=== PATIENT | female | born 1960 | race Caucasian/White ===

== ENCOUNTER 2023-05-06 08:51 | Emergency (ER) | payer MEDICARE, OTHER, SELFPAY ==
[2023-05-06 08:54] VITALS: BP 148/75
[2023-05-06 08:59] VITALS: BMI 24.7
--- NOTE | 2023-05-06 09:54 | ED.GENMED ---
History of Present Illness
General
Chief Complaint: Swallowing Problem
Source: patient and ambulance crew
Exam Limitations: none
Time Seen by Provider: 05/06/23 09:01
Nursing documentation reviewed up to this point in time: agreed with
Travel History
Have you had any contact with someone who has COVID-19?: No
Do you have any symptoms of coronavirus? Fever > 100 degrees, chills, cough, shortness of breath, sore throat, loss of taste or smell, muscle aches, or headache?: No
History of Present Illness
History of Present Illness:
63-year-old female with history of schizoaffective disorder, depression, suicidal ideation patient states she feels there is something stuck in her throat. She denies chest pain or trouble breathing.
Spoke with Minal the warehouse receiving supervisor states during med Pass, she did not show. She is always the first one there, they went to find her, she never came out of her bedroom to get her meds, when staff knocked on the door, she did not answer, did
not respond, started banging on the door, still did not respond when she usually does. They retrieved the master vega and went into her room. She was laying still, they called out her name, she opened her eyes but she did not move, she was
breathing, they shook her and called to her and she did not respond. Her arm was ' weight.' Per Minal, this was not like her to just not respond at all. When they tried to move her it was weight, they could not even sit her up. 7
minutes later when vice president of development came she was responding as usual, when EMS asked her to you hear me, she stated she needs toilet paper. At that point she did get out of bed and stool is usual she did not report that she felt anything stuck in her throat at
that time.
and was at her baseline, the first thing she said was 'I need some toilet paper.'.
Minal states she was 'out of character,' the day before, screaming and yelling, going on and on, unusual for her. Has had UTI in the past
Pt states she does not want to go back to [facility] as 'I can't use a handicapped bathroom.' Thinking the lack of toilet paper may have set her off, I asked Minal to check the BR and she did and said there is toilet paper in there.
Past History
Past History
ED Past Medical History: COPD, HTN, Psychiatric (Schizoaffective disorder) and Other (Nasal polyps)
ED Past Surgical History: Cholecystectomy and Orthopedic
Social History
Tobacco: Former smoker (Quit cigarettes in 2015; reports secondhand smoke exposure)
Alcohol: None
Drug: None
Personal:
Living: assisted living (Resides in a psychiatric senior living)
Employment: Disabled
Family History
Family History: Other (Noncontributory)
Review of Systems
Review of Systems
Allergies reviewed?: Yes
All Other Systems: ROS reviewed and negative except as documented in HPI and ROS
Constitutional: Denies fever
EENT: Denies sore throat
Respiratory: Denies trouble breathing
Cardiac: Denies chest pain
ABD/GI: Denies abdominal pain, nausea, vomiting or diarrhea
: Denies dysuria or difficulty voiding
Musculoskeletal: Denies edema
Skin: Reports no symptoms
Neurological: Reports no symptoms
Phy Exam
Physical Exam
Physical Exam:
GENERAL: No acute distress. A&Ox3.
CONSTITUTIONAL: Afebrile.
EYES: PERRL, conjunctivae normal
Neck: Supple
ENMT: moist mucus membranes, Pharynx nl
RESPIRATORY: Regular respirations, nonlabored, lungs clear.
CARDIOVASCULAR: Regular rate and rhythm, no murmurs, no rubs.
GI: Soft, nontender, normal BS
MUSCULOSKELETAL: Moves with ease. Well perfused.
SKIN: Warm, dry, pink
PSYCH: Mildly agitated at times,. Well kept, interactive.
NEUROLOGIC: Awake, alert and oriented. No focal neurological deficits
Course
Orders/Labs/Results
Orders:
Orders
05/06/23 09:03
CR Soft Tissue Neck Urgent
Comment:
Reason For Exam: feels 'like watermelon seeds' stuck in throat
05/06/23 10:34
Complete Blood Count/With Diff Urgent
Comprehensive Metabolic Panel Urgent
Urinalysis Reflex To Culture Urgent
Date Specimen was Collected: 05/06/23
Time Specimen was Collected: 10:28
Abnormal Lab Results
05/06/23
10:34
Absolute Monos (auto) 0.7 H 10^3/uL
(0.1-0.6)
Sodium 132 L mmol/L
(135-145)
Chloride 96 L mmol/L
(98-107)
Carbon Dioxide 33 H mmol/L
(22-30)
BUN 4 L mg/dl
(7-17)
Creatinine 0.4 L mg/dL
(0.6-1.0)
Glucose 115 H mg/dl
(70-99)
05/06/23 10:34
05/06/23 10:34
Vital Signs
Initial and Last Documented VS:
Initial Vital Signs
Temp Pulse Resp BP Pulse Ox
98.2 F 73 16 148/75 94
05/06/23 08:54 05/06/23 08:54 05/06/23 08:54 05/06/23 08:54 05/06/23 08:54
Last Documented Vital Signs
Temp Pulse Resp BP Pulse Ox
98.2 F 74 16 119/77 94
05/06/23 08:54 05/06/23 16:41 05/06/23 08:54 05/06/23 16:41 05/06/23 08:54
MDM/Problems Addressed
Differential Diagnosis Includes:
Psychotic episode, UTI
MDM/Problems Addressed:
63-year-old female with history of schizoaffective disorder, depression, suicidal ideation patient states she feels there is something stuck in her throat. She denies chest pain or trouble breathing.
Spoke with Minal the warehouse receiving supervisor states during med Pass, she did not show. She is always the first one there, they went to find her, she never came out of her bedroom to get her meds, when staff knocked on the door, she did not answer, did
not respond, started banging on the door, still did not respond when she usually does. They retrieved the master vega and went into her room. She was laying still, they called out her name, she opened her eyes but she did not move, she was
breathing, they shook her and called to her and she did not respond. Her arm was ' weight.' Per Minal, this was not like her to just not respond at all. When they tried to move her it was weight, they could not even sit her up. 7
minutes later when vice president of development came she was responding as usual, when EMS asked her to you hear me, she stated she needs toilet paper. At that point she did get out of bed and stool is usual she did not report that she felt anything stuck in her throat at
that time.
and was at her baseline, the first thing she said was 'I need some toilet paper.'.
Minal states she was 'out of character,' the day before, screaming and yelling, going on and on, unusual for her. Has had UTI in the past
Pt states she does not want to go back to [facility] as 'I can't use a handicapped bathroom.' Thinking the lack of toilet paper may have set her off, I asked Minal to check the BR and she did and said there is toilet paper in there.
05/06/2023 1145 PM
CBC normal
CMP normal
UA negative
Soft tissue lateral neck shows no acute abnormality
Patient has been out of bed multiple times ambulating to the bathroom or around the room, no focal neurological deficits.
This morning's episode was most likely a psychotic episode as she snapped right out of it when EMS arrived, has been acting baseline since arrival.
*Critical Care Note
Total Time (30-74mins, 75-104mins- exclusive of procedures): Not Applicable
ED Attending Note
-
Portions of this chart may have been created with voice recognition software.� Occasional wrong word or��sound alike� substitutions may have occurred due to the inherent limitations of voice recognition software.
Discharge Plan
Departure
Patient Disposition: Home (Routine Discharge)
Date of Disposition: 05/06/23
Time of Disposition: 11:53
Patient with high blood pressure during this ER visit?: No
Condition: Good
Discharge Problem:
Schizoaffective disorder
Prescriptions:
No Action
fluoxetine [Prozac] 40 mg Capsule
40 mg PO DAILY
olanzapine 10 mg Tablet
10 mg PO BID
haloperidol 10 mg Tablet
10 mg PO BID
docusate sodium [Colace] 100 mg Capsule
100 mg PO DAILY
clotrimazole 1 % Cream
1 applic TOPICAL TID
Rx Instructions:
Apply to feet
Ensure Original Liquid
1 ea PO BID
acetaminophen 325 mg Tablet
650 mg PO Q4HWA Qty: 0 0RF
lorazepam 0.5 mg Tablet
0.5 mg PO DAILY
cefdinir 300 mg capsule
300 mg PO BID 10 Days Qty: 20 0RF
Referrals:
Walter Wiley, [Family Provider] - As needed
Activity Restrictions/Additional Instructions:
There is nothing worrisome in your workup here today.
Your lab work is normal, your urine test is normal, your neck x-ray shows nothing worrisome.
You have been in and out of bed and ambulating normally since arrival
Interventions
Interventions:
*Risk Screen - Suicide Last Done: 05/06/23 08:59
*General Assessment Last Done: 05/06/23 08:59
*Neglect/Abuse Screening Last Done: 05/06/23 08:59
*Nursing Disposition Last Done: 05/06/23 16:41
ED-EENT Assessment Last Done: 05/06/23 08:59
DB-Xslmpe-Rrfatygsbx Assessment Last Done: 05/06/23 08:59
ED- Pulmonary Assessment Last Done: 05/06/23 08:59
ED- Neurological Assessment Last Done: 05/06/23 08:59
ED Swallowing Screen Last Done: 05/06/23 10:27
Discharge Date and Time
Discharge Date/Time: 05/06/23 16:43
[2023-05-06 10:47] LABS: Urine Albumin Negative (Neg - Trace); Urine Bilirubin Negative (Negative); Urine Character Clear (Clear); Urine Color Yellow; Urine Glucose Negative (Negative); Urine Ketone Negative (Negative); Urine Leukocyte Negative (Negative); Urine Nitrite Negative (Negative); Urine Occult Blood Negative (Negative); Urine Urobilinogen Negative (Neg - 1+)
[2023-05-06 10:55] LABS: % Basophils 0.5 % (0-2); % Eosinophils 3.4 % (0-6); % Immature Granulocytes 0.1 % (0-0.5); % Lymphocytes 20.6 % (20.5-51.1); % Monocytes 9.2 % (1.7-9.3); % Neutrophils 66.2 % (42.2-75.2); Absolute Eosinophils 0.3 10^3/uL (0-0.7); Absolute Lymphocytes 1.5 10^3/uL (1.2-3.4); Absolute Monocytes 0.7 10^3/uL (0.1-0.6); Absolute Neutrophils 4.9 10^3/uL (1.4-6.5); Hematocrit 40.4 % (37.0-47.0); Hemoglobin 13.7 g/dL (12.0-16.0); Mean Corp Hgb Conc. 33.9 g/dL (33.0-37.0); Mean Corpuscular Volume 91.4 fL (81.0-99.0); Mean Platelet Volume 8.9 fL (7.4-10.4); Nucleated Red Blood Cells % 0 %; Platelet Count 307 10^3/uL (130-400); Red Blood Cell Count 4.42 10^6/uL (4.20-5.40); Red Cell Dist. Width 12.6 % (11.5-14.5); White Blood Cell Count 7.4 10^3/uL (4.8-10.8)
[2023-05-06 11:08] LABS: ALT (SGPT) 15 U/L (0-35); AST (SGOT) 28 U/L (14-36); Albumin 3.9 g/dl (3.5-5.0); Alkaline Phosphatase 80 U/L (38-126); Blood Urea Nitrogen 4 mg/dl (7-17); Calcium 8.9 mg/dl (8.4-10.2); Carbon Dioxide 33 mmol/L (22-30); Chloride 96 mmol/L (98-107); Estimated Creatinine Clearance 97 ml/min; Glucose 115 mg/dl (70-99); Potassium 4.7 mmol/L (3.5-5.1); Sodium 132 mmol/L (135-145); Total Bilirubin 0.8 mg/dl (0.2-1.3); Total Protein 6.6 g/dl (6.3-8.2); eGFR > 60.00
[2023-05-06 16:40] VITALS: BP 119/77
[2023-05-06 16:41] VITALS: BP 119/77
== END 2023-05-06 16:43 | disposition home or self-care (01) ==
LOC: EMR 08:51
PROVIDERS: Registered Nurse; EMERGENCY PHYSICIAN Emergency Medicine; FAMILY PHYSICIAN Family Medicine
DX: F25.9 Schizoaffective disorder, unspecified (principal); F32.A Depression, unspecified
CPT/HCPCS: 99284; 70360; 80053; 81003; 85025

== ENCOUNTER 2023-10-27 13:24 | Emergency (ER) | payer MEDICARE, OTHER, SELFPAY ==
--- NOTE | 2023-10-27 13:27 | ED.GENMED ---
History of Present Illness
General
Chief Complaint: Musculo-Skeletal Complaint
Time Seen by Provider: 10/27/23 13:26
History of Present Illness
History of Present Illness:
HPI: Comes in from [facility] in [facility] Per staff (according to EMS), had been c/o 'being able to see the bone of the right foot'. She ultimately went to a neighbor's house and called for 911. She said they are
treating her like she was in a concentration camp.
EXAM:
GENERAL: Well appearing in no distress
HEENT: Moist oral mucosa, chronic appearing deformity noted to the nose
CARDIOVASCULAR: No murmurs, normal heart rate, regular rhythm, No chest wall tenderness
PULMONARY: No good respiratory distress, breath sounds are clear and equal
ABDOMEN: Soft with no peritoneal signs, no tenderness
NEUROLOGIC: Good strength all extremities, no coordination deficits
PSYCHIATRIC: She has pressured speech and tangential thoughts, she lacks logic, she thinks it is May
EXTREMITIES: Nontender, no edema, moves all extremities equally
SKIN: Some onychomycosis noted to the nail of the right first toe, no visualized bone
TIME OF INITIAL ENCOUNTER: 1:30 PM
NUMBER AND COMPLEXITY OF PROBLEMS ADDRESSED AT THE ENCOUNTER
� Chronic conditions affecting care: Schizophrenia, developmental delay
� Acute Exacerbation and/or Progression of Chronic Illness: This is an acute on chronic problem
� Differential Diagnosis includes: Exacerbation of schizophrenia
AMOUNT AND/OR COMPLEXITY OF DATA TO BE REVIEWED AND ANALYZED
� I performed an independent evaluation of and my interpretation is:
EKG:
CT:
X-rays:
Laboratory Studies: Normal CBC, sodium 132, bicarb slightly high but otherwise begin chemistry abnormality
Other:
� Review of other/old records: I reviewed records. The patient was seen here in April of this year with psychiatric concern but ultimately was discharged back to her facility.
� Clinical information was obtained by an independent historian: I reviewed the notes from her facility which indicates that she did receive her regularly scheduled Haldol this morning and Zyprexa last evening
� Prescriptions/Medications Considered but not given: Considered antipsychotic the patient is already on Zyprexa and Haldol
� Further testing considered but not performed:
RISK OF COMPLICATIONS AND/OR MORBIDITY OR MORTALITY OF PATIENT MANAGEMENT
� Social determinants of health affecting care: Lives at [facility]
� Discussion with other providers: Discussed case with crisis and asked for consult - pt refused to speak w/ her as of 1414. I went in the room with crisis. She refused to speak to crisis but clearly displayed evidence of
psychosis. However she is already at a [facility] [place] [facility]. Crisis reached out to the [facility] [place] [facility] and they will come to pick her up shortly. She does not appear to be a threat to herself or others
� Escalation of care including admission/observation vs risk of discharge considered: The patient has pressured speech, tangential thoughts, and lacks logic. However she is already at a facility called [facility]. I have
asked for crisis to evaluate as well. I feel that she is medically cleared. And she has already had a [facility] [place] [facility].
Past History
Past History
ED Past Medical History: COPD, HTN, Psychiatric (Schizoaffective disorder) and Other (Nasal polyps)
ED Past Surgical History: Cholecystectomy and Orthopedic
Social History
Tobacco: Former smoker (Quit cigarettes in 2015; reports secondhand smoke exposure)
Alcohol: None
Drug: None
Personal:
Living: assisted living (Resides in a [facility] [place] [facility])
Employment: Disabled
Family History
Family History: Other (Noncontributory)
Phy Exam
Physical Exam
Physical Exam:
See HPI
Course
Orders/Labs/Results
Orders:
Orders
10/27/23 13:40
Crisis Consult Urgent
Reason for Consult: mental health eval
10/27/23 13:47
Alcohol Urgent
Complete Blood Count/With Diff Urgent
Comprehensive Metabolic Panel Urgent
Drug Screen, Urine [Urine Drug Abuse Screen] Urgent
Date Specimen was Collected: 10/27/23
Time Specimen was Collected: 13:41
Fentanyl, Urine Urgent
Abnormal Lab Results
10/27/23
13:47
RBC 3.97 L 10^6/uL
(4.20-5.40)
Hct 36.1 L %
(37.0-47.0)
MCH 31.2 H pg
(27.0-31.0)
Absolute Monos (auto) 0.7 H 10^3/uL
(0.1-0.6)
Lymphocytes % 18.9 L %
(20.5-51.1)
Monocytes % 9.8 H %
(1.7-9.3)
Sodium 132 L mmol/L
(135-145)
Chloride 96 L mmol/L
(98-107)
Carbon Dioxide 34 H mmol/L
(22-30)
Creatinine 0.4 L mg/dL
(0.6-1.0)
Glucose 109 H mg/dl
(70-99)
Total Protein 6.2 L g/dl
(6.3-8.2)
U Benzodiazepines Scrn Positive H
(Negative)
10/27/23 13:47
10/27/23 13:47
Vital Signs
Initial and Last Documented VS:
Initial Vital Signs
BP
125/66
10/27/23 13:36
Last Documented Vital Signs
Temp Pulse Resp BP Pulse Ox
98.8 F 65 13 125/66 95
10/27/23 13:40 10/27/23 14:30 10/27/23 14:30 10/27/23 13:40 10/27/23 14:30
*Critical Care Note
Total Time (30-74mins, 75-104mins- exclusive of procedures): Not Applicable
ED Attending Note
-
Portions of this chart may have been created with voice recognition software.� Occasional wrong word or��sound alike� substitutions may have occurred due to the inherent limitations of voice recognition software.
Discharge Plan
Departure
Patient Disposition: Home (Routine Discharge)
Date of Disposition: 10/27/23
Time of Disposition: 14:39
Patient with high blood pressure during this ER visit?: Yes
Discharge Problem:
Psychosis, Schizoaffective disorder
Prescriptions:
No Action
fluoxetine [Prozac] 40 mg Capsule
40 mg PO DAILY
olanzapine 10 mg Tablet
10 mg PO BID
haloperidol 10 mg Tablet
10 mg PO BID
docusate sodium [Colace] 100 mg Capsule
100 mg PO DAILY
clotrimazole 1 % Cream
1 applic TOPICAL TID
Rx Instructions:
Apply to feet
Ensure Original Liquid
1 ea PO BID
acetaminophen 325 mg Tablet
650 mg PO Q4HWA Qty: 0 0RF
lorazepam 0.5 mg Tablet
0.5 mg PO DAILY
cefdinir 300 mg capsule
300 mg PO BID 10 Days Qty: 20 0RF
Referrals:
Walter Wiley, DO [Family Provider] -
Activity Restrictions/Additional Instructions:
Basic blood work is unremarkable including normal white count, normal hemoglobin, alcohol level is undetected. Sodium level is just slightly low but not what I would consider is anything significant. Return here if worse.
Interventions
Interventions:
*Risk Screen - Suicide Last Done: 10/27/23 14:11
*General Assessment Last Done: 10/27/23 14:11
*Neglect/Abuse Screening Last Done: 10/27/23 14:11
ED- Fall Risk Assessment Last Done: 10/27/23 14:37
*ED COVID-19 Vaccine History Last Done: 10/27/23 14:11
ED-Musculoskeletal Assessment Last Done: 10/27/23 14:37
Discharge Date and Time
Print Language: MACEDONIAN
[2023-10-27 13:29] VITALS: BMI 29.3
[2023-10-27 13:36] VITALS: BP 125/66
[2023-10-27 13:40] VITALS: BP 125/66
[2023-10-27 14:00] LABS: % Basophils 0.5 % (0-2); % Eosinophils 3.7 % (0-6); % Immature Granulocytes 0.1 % (0-0.5); % Lymphocytes 18.9 % (20.5-51.1); % Monocytes 9.8 % (1.7-9.3); Absolute Eosinophils 0.3 10^3/uL (0-0.7); Absolute Lymphocytes 1.4 10^3/uL (1.2-3.4); Absolute Monocytes 0.7 10^3/uL (0.1-0.6); Hematocrit 36.1 % (37.0-47.0); Hemoglobin 12.4 g/dL (12.0-16.0); Mean Corp Hgb Conc. 34.3 g/dL (33.0-37.0); Mean Corpuscular Hgb 31.2 pg (27.0-31.0); Mean Corpuscular Volume 90.9 fL (81.0-99.0); Mean Platelet Volume 8.7 fL (7.4-10.4); Nucleated Red Blood Cells % 0 %; Platelet Count 287 10^3/uL (130-400); Red Blood Cell Count 3.97 10^6/uL (4.20-5.40); Red Cell Dist. Width 12.1 % (11.5-14.5); White Blood Cell Count 7.5 10^3/uL (4.8-10.8)
[2023-10-27 14:18] LABS: ALT (SGPT) 13 U/L (0-35); AST (SGOT) 23 U/L (14-36); Albumin 3.7 g/dl (3.5-5.0); Alkaline Phosphatase 66 U/L (38-126); Blood Urea Nitrogen 7 mg/dl (7-17); Carbon Dioxide 34 mmol/L (22-30); Chloride 96 mmol/L (98-107); Estimated Creatinine Clearance 89 ml/min; Glucose 109 mg/dl (70-99); Potassium 4.2 mmol/L (3.5-5.1); Sodium 132 mmol/L (135-145); Total Bilirubin 0.3 mg/dl (0.2-1.3); Total Protein 6.2 g/dl (6.3-8.2); eGFR > 60.00
[2023-10-27 14:19] LABS: Alcohol None Detected
[2023-10-27 14:56] LABS: Amphetamines Negative (Negative); Barbiturates Negative (Negative); Benzodiazepines Positive (Negative); Buprenorphine Negative (Negative); Cocaine Negative (Negative); Marijuana Negative (Negative); Methadone Negative (Negative); Methamphetamines Negative (Negative); Opiates Negative (Negative); Phencyclidine Negative (Negative); Tricyclic Antidepressants Negative (Negative)
[2023-10-27 15:18] LABS: Fentanyl, Urine Negative (Negative)
[2023-10-27 16:40] VITALS: BP 133/76
[2023-10-27 16:58] VITALS: BP 133/76
== END 2023-10-27 17:00 | disposition home or self-care (01) ==
LOC: EMR 13:24
PROVIDERS: EMERGENCY PHYSICIAN Emergency Medicine; FAMILY PHYSICIAN Family Medicine
DX: F29 Unspecified psychosis not due to a substance or known physiological condition (principal); F25.9 Schizoaffective disorder, unspecified; J44.9 Chronic obstructive pulmonary disease, unspecified; I10 Essential (primary) hypertension; Z77.22 Contact with and (suspected) exposure to environmental tobacco smoke (acute) (chronic); Z87.891 Personal history of nicotine dependence; Z90.49 Acquired absence of other specified parts of digestive tract
CPT/HCPCS: 99283; 80053; 80306; 80307; 82077; 85025

== ENCOUNTER 2024-02-11 02:48 | Observation (INO) | payer MEDICARE, OTHER, SELFPAY ==
[2024-02-10 11:13] VITALS: BP 116/79; BMI 24.0
[2024-02-10 16:35] LABS: % Basophils 0.8 % (0-2); % Eosinophils 5.3 % (0-6); % Immature Granulocytes 0.2 % (0-0.5); % Lymphocytes 25.1 % (20.5-51.1); % Monocytes 11.3 % (1.7-9.3); % Neutrophils 57.3 % (42.2-75.2); Absolute Basophils 0.1 10^3/uL (0-0.2); Absolute Eosinophils 0.4 10^3/uL (0-0.7); Absolute Lymphocytes 1.7 10^3/uL (1.2-3.4); Absolute Monocytes 0.8 10^3/uL (0.1-0.6); Absolute Neutrophils 3.8 10^3/uL (1.4-6.5); Hematocrit 38.2 % (37.0-47.0); Hemoglobin 12.4 g/dL (12.0-16.0); Mean Corp Hgb Conc. 32.5 g/dL (33.0-37.0); Mean Corpuscular Hgb 31.2 pg (27.0-31.0); Mean Platelet Volume 8.4 fL (7.4-10.4); Nucleated Red Blood Cells % 0 %; Platelet Count 272 10^3/uL (130-400); Red Blood Cell Count 3.98 10^6/uL (4.20-5.40); Red Cell Dist. Width 12.4 % (11.5-14.5); White Blood Cell Count 6.7 10^3/uL (4.8-10.8)
[2024-02-10 16:59] LABS: ALT (SGPT) 15 U/L (0-35); AST (SGOT) 22 U/L (14-36); Albumin 3.5 g/dl (3.5-5.0); Alkaline Phosphatase 58 U/L (38-126); Blood Urea Nitrogen 7 mg/dl (7-17); Calcium 8.8 mg/dl (8.4-10.2); Carbon Dioxide 38 mmol/L (22-30); Chloride 93 mmol/L (98-107); Estimated Creatinine Clearance 96 ml/min; Glucose 116 mg/dl (70-99); Potassium 4.5 mmol/L (3.5-5.1); Sodium 136 mmol/L (135-145); Total Bilirubin 0.4 mg/dl (0.2-1.3); eGFR > 60.00
[2024-02-10 18:08] LABS: Urine Albumin Negative (Neg - Trace); Urine Bilirubin Negative (Negative); Urine Character Clear (Clear); Urine Color Straw; Urine Glucose Negative (Negative); Urine Ketone Negative (Negative); Urine Leukocyte Negative (Negative); Urine Nitrite Negative (Negative); Urine Occult Blood Negative (Negative); Urine Specific Gravity 1.015 (<1.030); Urine Urobilinogen Negative (Neg - 1+)
--- NOTE | 2024-02-10 18:26 | ED.GENMED ---
History of Present Illness
<DO Chris Palencia Last Filed: 02/10/24 20:14>
General
Chief Complaint: Psychiatric Problem
Source: patient
Exam Limitations: clinical condition
Time Seen by Provider: 02/10/24 11:51
History of Present Illness
History of Present Illness:
64-year-old female with a history of developmental delays as well as schizoaffective disorder who presents after she was becoming hysterical at her retirement. The patient my evaluation states she will not go back there. If we are to send her
there she will punch somebody and assault them. She states its like being in a movie. She states here that she just wants to be away from there. She denies suicidal ideation. No fevers. Does complain of feeling like her feet are frostbitten.
States there is 'bone sticking out'.
Past History
<DO Chris Palencia Last Filed: 02/10/24 20:14>
Past History
ED Past Medical History: COPD, HTN, Psychiatric (Schizoaffective disorder) and Other (Nasal polyps)
ED Past Surgical History: Cholecystectomy and Orthopedic
Social History
Tobacco: Former smoker (Quit cigarettes in 2014; reports secondhand smoke exposure)
Alcohol: None
Drug: None
Personal:
Living: assisted living (Resides in a psychiatric retirement)
Employment: Disabled
Family History
Family History: Other (Noncontributory)
Phy Exam
<DO Chris Palencia Last Filed: 02/10/24 20:14>
Physical Exam
Physical Exam:
CONSTITUTIONAL Vital signs reviewed, Patient alert and oriented to person, place and time. Well-appearing
HEAD atraumatic, normocephalic.
EYES eyelids normal to inspection, Extraocular muscles intact, Conjunctiva normal, Sclera normal.
NECK normal range of motion, Trachea midline, no jugular venous distention.
RESP no respiratory distress
BACK No obvious deformities
UPPER EXTREMITY Gross Range of motion normal, gross motor strength normal
LOWER EXTREMITY Gross range of motion normal, Gross motor strength normal. Normal perfusion
NEURO Speech normal, No focal motor deficits include, Dre coma scale 15, Memory normal, Cranial Nerves intact to screening exam.
SKIN Skin warm, dry, and normal in color.
PSYCHIATRIC patient alert, not suicidal.
Course
<Geronimo Kothari, DO - Last Filed: 02/10/24 20:14>
Orders/Labs/Results
Orders:
Orders
02/10/24 14:27
Crisis Consult Urgent
Reason for Consult: psychosis
02/10/24 16:24
Complete Blood Count/With Diff Urgent
Comprehensive Metabolic Panel Urgent
02/10/24 18:02
Fentanyl, Urine Urgent
Urinalysis Reflex To Culture Urgent
Date Specimen was Collected: 02/10/24
Time Specimen was Collected: 18:00
Urine Drug Abuse Screen Urgent
Date Specimen was Collected: 02/10/24
Time Specimen was Collected: 18:00
02/10/24 18:26
Add On- LAB Urgent
Tests Added?: drug abuse screen
02/10/24 18:27
Electrocardiogram (*1) Urgent
Reason for Study: QTc Monitoring
02/10/24 19:24
Acetaminophen [Tylenol] 1,000 mg .ROUTE .STK-MED ONE
02/10/24 19:29
Acetaminophen [Tylenol] 1,000 mg PO NOW STA
02/10/24 21:58
Ipratropium/Albuterol Sulfate [Duoneb] 3 ml .ROUTE .STK-MED ONE
02/10/24 22:00
Ipratropium/Albuterol Sulfate [Duoneb] 3 ml INH R NOW ONE
02/10/24 22:32
COVID-19 Antigen Urgent
Source: Nasal Swab
Troponin I Urgent
Influenza A+B Rapid Molecular Urgent
ARCELIA Source: Nasal Swab
Specimen Description:
CR Chest - 2 Views Urgent
Comment:
Reason For Exam: cough
02/10/24 22:33
O2 Therapy [RESP] Urgent
Titrate/Wean O2 to maintain O2 sat greater than (%): 93
02/10/24 22:35
Electrocardiogram (*1) Urgent
Reason for Study: Shortness of Breath
EKG- Treatment ONCE
Abnormal Lab Results
02/10/24 02/10/24
16:24 18:02
RBC 3.98 L 10^6/uL
(4.20-5.40)
MCH 31.2 H pg
(27.0-31.0)
MCHC 32.5 L g/dL
(33.0-37.0)
Absolute Monos (auto) 0.8 H 10^3/uL
(0.1-0.6)
Monocytes % 11.3 H %
(1.7-9.3)
Chloride 93 L mmol/L
(98-107)
Carbon Dioxide 38 H mmol/L
(22-30)
Creatinine 0.5 L mg/dL
(0.6-1.0)
Glucose 116 H mg/dl
(70-99)
Total Protein 6.0 L g/dl
(6.3-8.2)
U Benzodiazepines Scrn Positive H
(Negative)
02/10/24 16:24
02/10/24 16:24
Vital Signs
Initial and Last Documented VS:
Initial Vital Signs
Temp Pulse Resp BP Pulse Ox
98.2 F 80 16 116/79 98
02/10/24 11:13 02/10/24 11:13 02/10/24 11:13 02/10/24 11:13 02/10/24 11:13
Last Documented Vital Signs
Temp Pulse Resp BP Pulse Ox
98.2 F 98 24 137/92 90
02/10/24 11:13 02/10/24 22:19 02/10/24 22:19 02/10/24 22:19 02/10/24 22:19
<Yandel Boyd, DO - Last Filed: 02/10/24 22:38>
Orders/Labs/Results
Orders:
Orders
02/10/24 14:27
Crisis Consult Urgent
Reason for Consult: psychosis
02/10/24 16:24
Complete Blood Count/With Diff Urgent
Comprehensive Metabolic Panel Urgent
02/10/24 18:02
Fentanyl, Urine Urgent
Urinalysis Reflex To Culture Urgent
Date Specimen was Collected: 02/10/24
Time Specimen was Collected: 18:00
Urine Drug Abuse Screen Urgent
Date Specimen was Collected: 02/10/24
Time Specimen was Collected: 18:00
02/10/24 18:26
Add On- LAB Urgent
Tests Added?: drug abuse screen
02/10/24 18:27
Electrocardiogram (*1) Urgent
Reason for Study: QTc Monitoring
02/10/24 19:24
Acetaminophen [Tylenol] 1,000 mg .ROUTE .STK-MED ONE
02/10/24 19:29
Acetaminophen [Tylenol] 1,000 mg PO NOW STA
02/10/24 21:58
Ipratropium/Albuterol Sulfate [Duoneb] 3 ml .ROUTE .STK-MED ONE
02/10/24 22:00
Ipratropium/Albuterol Sulfate [Duoneb] 3 ml INH R NOW ONE
02/10/24 22:32
COVID-19 Antigen Urgent
Source: Nasal Swab
Troponin I Urgent
Influenza A+B Rapid Molecular Urgent
ARCELIA Source: Nasal Swab
Specimen Description:
CR Chest - 2 Views Urgent
Comment:
Reason For Exam: cough
02/10/24 22:33
O2 Therapy [RESP] Urgent
Titrate/Wean O2 to maintain O2 sat greater than (%): 93
02/10/24 22:35
Electrocardiogram (*1) Urgent
Reason for Study: Shortness of Breath
EKG- Treatment ONCE
Abnormal Lab Results
02/10/24 02/10/24
16:24 18:02
RBC 3.98 L 10^6/uL
(4.20-5.40)
MCH 31.2 H pg
(27.0-31.0)
MCHC 32.5 L g/dL
(33.0-37.0)
Absolute Monos (auto) 0.8 H 10^3/uL
(0.1-0.6)
Monocytes % 11.3 H %
(1.7-9.3)
Chloride 93 L mmol/L
(98-107)
Carbon Dioxide 38 H mmol/L
(22-30)
Creatinine 0.5 L mg/dL
(0.6-1.0)
Glucose 116 H mg/dl
(70-99)
Total Protein 6.0 L g/dl
(6.3-8.2)
U Benzodiazepines Scrn Positive H
(Negative)
02/10/24 16:24
02/10/24 16:24
Vital Signs
Initial and Last Documented VS:
Initial Vital Signs
Temp Pulse Resp BP Pulse Ox
98.2 F 80 16 116/79 98
02/10/24 11:13 02/10/24 11:13 02/10/24 11:13 02/10/24 11:13 02/10/24 11:13
Last Documented Vital Signs
Temp Pulse Resp BP Pulse Ox
98.2 F 98 24 137/92 90
02/10/24 11:13 02/10/24 22:19 02/10/24 22:19 02/10/24 22:19 02/10/24 22:19
<Geronimo Kothari DO - Last Filed: 02/10/24 20:14>
MDM/Problems Addressed
MDM/Problems Addressed:
Schizoaffective disorder, psychosis
<Geronimo Kothari DO - Last Filed: 02/10/24 20:14>
*Pulse Oximetry
Patient hypoxic: no
*Critical Care Note
Total Time (30-74mins, 75-104mins- exclusive of procedures): Not Applicable
Data Reviewed
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
Further Testing Considered But Not Given:
Consider head CT but no significant change from
<Geronimo Kothari DO - Last Filed: 02/10/24 20:14>
Patient Management
Escalation/DeEscalation of care consider admission/obs:
Case discussed with crisis. Will attempt to place the patient further management. No acute medical concerns
<Yandel Boyd DO - Last Filed: 02/10/24 22:38>
Update Note
Update Note:
10:20 PM called to the room by nurse patient awaiting transfer to [facility] for mental health issues, patient was wheezing pulse ox is 74 to 76% on room air given a DuoNeb now is feeling better though pulse ox is still 88% on room air
apparently has a history of COPD with secondhand smoke, apparently had some chest pain earlier today, will repeat check chest x-ray repeat her EKG check viral swabs, placed on supplemental oxygen check proBNP and troponin at this point believe it
would be prudent to cancel her transfer to the [facility] to get her medically stabilized, will ask hospitalist to admit her
ED Attending Note
<Geronimo Kothari DO - Last Filed: 02/10/24 20:14>
-
Portions of this chart may have been created with voice recognition software.� Occasional wrong word or��sound alike� substitutions may have occurred due to the inherent limitations of voice recognition software.
Discharge Plan
Departure
Patient Disposition: Admit
Date of Disposition: 02/10/24
Time of Disposition: 18:26
Admit to: Med/Surg
Presentation/result/management discussed w/ accepting MD/DO: Hospitalist
Patient with high blood pressure during this ER visit?: No
Condition: Fair
Covid-19: Not Applicable
Discharge Problem:
Acute respiratory failure with hypoxemia, Acute exacerbation of COPD with asthma, Schizoaffective disorder, Hypoxia
Prescriptions:
No Action
fluoxetine [Prozac] 40 mg Capsule
40 mg PO DAILY
olanzapine 10 mg Tablet
10 mg PO BID
haloperidol 10 mg Tablet
10 mg PO BID
docusate sodium [Colace] 100 mg Capsule
100 mg PO DAILY
clotrimazole 1 % Cream
1 applic TOPICAL TID
Rx Instructions:
Apply to feet
Ensure Original Liquid
1 ea PO BID
acetaminophen 325 mg Tablet
650 mg PO Q4HWA Qty: 0 0RF
lorazepam 0.5 mg Tablet
0.5 mg PO DAILY
cefdinir 300 mg capsule
300 mg PO BID 10 Days Qty: 20 0RF
Referrals:
UNKNOWN - PT DOES,NOT KNOW [Family Provider] -
Interventions
Interventions:
*Risk Screen - Suicide Last Done: 02/10/24 11:13
*General Assessment Last Done: 02/10/24 11:13
*Neglect/Abuse Screening Last Done: 02/10/24 11:13
ED- Fall Risk Assessment Last Done: 02/10/24 11:13
*ED COVID-19 Vaccine History Last Done: 02/10/24 11:13
ED-Psychological Assessment Last Done: 02/10/24 11:13
Discharge Date and Time
Print Language: MOHAWK
[2024-02-10 18:45] LABS: Amphetamines Negative (Negative); Barbiturates Negative (Negative); Benzodiazepines Positive (Negative); Buprenorphine Negative (Negative); Cocaine Negative (Negative); Marijuana Negative (Negative); Methadone Negative (Negative); Methamphetamines Negative (Negative); Opiates Negative (Negative); Phencyclidine Negative (Negative); Tricyclic Antidepressants Negative (Negative)
[2024-02-10 19:06] LABS: Fentanyl, Urine Negative (Negative)
[2024-02-10] MEDS: TYLENOL 1000 MG PO (19:29)
[2024-02-10 19:37] VITALS: BP 121/81
[2024-02-10] MEDS: DUONEB 3 ML INH (22:01)
[2024-02-10 22:19] VITALS: BP 137/92
[2024-02-11 00:12] LABS: COVID-19 Antigen Negative (Negative)
[2024-02-11 00:14] LABS: Troponin I < 0.012 ng/ml
--- NOTE | 2024-02-11 02:11 | HPS.HSE ---
Family Physician
-
Family Physician: NOT KNOW UNKNOWN - PT DOES
Chief Complaint
-
Behavioral problem
History of Present Illness
This is a 64-year-old female with a past medical history significant for COPD, schizoaffective disorder, nasal polyps who presents to the emergency department via EMS after threatening to leave the [facility] where she is [facility] to be staying.
Per records EMS was called to the home for threatening behavior. Patient was threatening to leave the [facility]dc because she said that she does not like to stay there anymore. She was then brought to the emergency department for evaluation. She
denies any suicidal or homicidal ideation. To me the patient denies any new symptoms. She denies cough fevers or chills. She denies any shortness of breath. She denies using normal oxygen. She denies any urinary symptoms. She specifically
states she does not want to return to the fdc.
While in the ED she was found to be hypoxic to 90%.
Blood pressure was 197/92 with a pulse of 98 and temperature of 98.2. ECG showed normal sinus rhythm. Chemistries were notable for a bicarb of 38 which is similar to prior but otherwise unremarkable. CBC was unremarkable. UA showed no
abnormality urine tox was positive for benzodiazepine (patient on lorazepam). COVID test was negative.
Medical History
Past Medical History
Past Medical History: Reports COPD and HTN
Additional Past Medical History:
Nasal polyps
Schizoaffective disorder
Past Surgical History: Reports Other
Social History
Tobacco: Former Smoker
Alcohol: None
Drug: None
Personal:
Living: Other (alf)
Employment: Not Employed
Family History
Family History: Not pertinent
Allergies / Home Medications
Allergies reflects when Allergies were last updated in [employer].
Home Medications with original date entered in [employer]
Allergy/Medication List:
Allergies
Allergy/AdvReac Type Severity Reaction Status Date / Time
aspirin Allergy Nausea Verified 02/19/24 09:05
NSAIDS (Non-Steroidal Allergy Shortness Verified 05/06/23 09:05
Anti-Inflamma of Breath
Penicillins Allergy Rash Verified 05/06/23 09:05
Home Medications
docusate sodium 100 mg capsule (Colace) 100 mg PO DAILY Constipation 12/22/21
fluoxetine 40 mg capsule (Prozac) 40 mg PO DAILY Mental Health/Anxiety 12/22/21
food supplemt, lactose-reduced (Ensure Original oral liquid) 1 ea PO BID Supplement 12/22/21
haloperidol 10 mg tablet 10 mg PO BID Mental Health/Anxiety 12/22/21
lorazepam 0.5 mg tablet 0.5 mg PO DAILY 08/26/22
biotin 10,000 mcg capsule 10,000 mcg PO DAILY 02/10/24
magnesium hydroxide 400 mg/5 mL oral suspension (Milk of Magnesia) 15 ml PO DAILY 02/10/24
olanzapine 20 mg tablet 20 mg PO HS 02/10/24
Review of Systems
-
Constitutional: Reports No Symptoms
EENT: Reports No Symptoms
Respiratory: Reports No Symptoms
Cardiac: Reports No Symptoms
Abdomen/GI: Reports No Symptoms
: Reports No Symptoms
Musculoskeletal: Reports No Symptoms
Skin: Reports No Symptoms
Neurological: Reports No Symptoms
Endocrine: Reports No Symptoms
Hematologic/Lymphatic: Reports No Symptoms
Psych: Reports No Symptoms
Physical Exam
Vital Signs
Vital Signs
Temp Pulse Resp BP Pulse Ox
98.2 F 98 24 137/92 90
02/10/24 11:13 02/10/24 22:19 02/10/24 22:19 02/10/24 22:19 02/10/24 22:19
Physical Exam
General: Well Developed, No Apparent Distress and Conversant
HEENT: NormoCephalic, Anicteric, Moist mucous membranes, Atraumatic and Other (abnormal nose with thick congestion and polyps)
Respiratory: Clear
Cardiac: S1/S2 and Regular Rhythm
GI: Soft, Non Tender and Non Distended
Rectal: Deferred by Provider
Genito-urinary: Deferred by me
Musculoskeletal: No Clubbing, No Cyanosis and No Edema
Skin: Warm
Neuro: AO x 3
Hematologic/Lymphatic: No Lymphadenopathy
Psych: Agitated
Laboratory Results
-
02/10/24 16:24
02/10/24 16:24
Laboratory Results
Total Bilirubin 0.4 mg/dl (0.2-1.3) 02/10/24 16:24
AST 22 U/L (14-36) 02/10/24 16:24
ALT 15 U/L (0-35) 02/10/24 16:24
Alkaline Phosphatase 58 U/L (38-126) 02/10/24 16:24
Troponin I < 0.012 ng/ml 02/10/24 23:43
Data Reviewed
-
Diagnostic Radiology: Image Personally Visualized and interpreted
Medical Tests (Nuc Med, Echo, EKG etc): Image Personally Visualized and interpreted
Lab Data: Labs Reviewed by me
Old Records: Reviewed
Impression/Plan
-
IMPRESSION:
64 F brought by EMS for agitation and threatening to leave her fdc. She has schizoaffective disorder with prior admission for psychosis. Here says will not return to the fdc. She clearly has chronic respiratory depression with serum
bicarb of 38 and not on diuretics. She has severe nasal polyps and desats when sleeping or napping. I believe she likely has sleep apnea as well. Records indicated that she has been recommened outpatient follow up by ENT for the polyps but she is
unable to provide details. She became more agitated and paranoid as I was asking more probing questions and she decided to cut the interview short.
When awake and alert, oxygen was 98% on 2 L. I did not get the chance to titrate and re-evaluate. No wheezing on exam. No increased WOB. Xray is unremarkable. I do not suspect COPD exacerbation or any acute hypoxic process.
PLAN:
1. Psych - Shizoaffective disorder refusing to return home. No suicidal or homicidal ideation.
- admit to med surg / obs
- psych consult
- continue haloperidol, olanzapine and fluoxetine
- case management
-
2. Hypoxia - Chronic CO2 retention, sleep apnea and severe nasal polyps. No evidence of COPD exacerbation.
- oxygen HS prn when sleep, consider face mask rather than nasal prongs only
- vbg in am
- check with family about ENT follow up and sleep study
DVT PPX - lovenox sq
Code status Full Code
[2024-02-11 07:05] VITALS: BP 130/76
[2024-02-11] MEDS: DUONEB 3 ML INH (08:19)
[2024-02-11] MEDS: HALDOL 10 MG PO (08:41)
[2024-02-11] MEDS: COLACE 100 MG PO (08:41)
[2024-02-11] MEDS: ATIVAN 0.5 MG PO (08:41)
[2024-02-11] MEDS: PROZAC 40 MG PO (08:41)
[2024-02-11] MEDS: MILK OF MAGNESIA 15 ML PO (08:41)
--- NOTE | 2024-02-11 09:40 | W.PN.HOSP.TC ---
Today's Communication/Plan
-
See plan
Assessment / Plan
Assessment / Plan
Impression:*
Transient hypoxia, improved.
Schizoaffective disorder.
Plan:
Transient hypoxia
Unclear reasons, possibly in the settings of agitation and atelectasis.
No clinical evidence of respiratory distress or increased work of breathing.
Pulse ox 96-98% on room air shortly after patient ambulating to the restroom
Lung exam with no evidence of bronchospasm
Afebrile
Chest x-ray with no acute changes other than mild hyperinflation.
COVID/influenza negative
Unremarkable blood work other than mild likely hypovolemic hyponatremia with contraction alkalosis (less likely chronic and function of chronic compensation)
Clinically no evidence of COPD exacerbation or CHF.
Schizoaffective disorder.
Currently calm and cooperative.
Continue preadmission regimen including Zyprexa, Ativan, Haldol, Prozac,
Psych consultation
Medically optimized for discharge to inpatient psych if required.
Anticipated Discharge: Within 24 hours
Subjective/Interval History
-
Date of Service: February 11, 2024
Objective Data
-
Vital Signs:
Vital Signs
Temp Pulse Resp BP Pulse Ox
98.1 F 78 18 130/76 98
02/11/24 07:05 02/11/24 08:26 02/11/24 08:26 02/11/24 07:05 02/11/24 08:26
Physical Exam
-
General: Well Developed and No Apparent Distress
HEENT: Normocephalic, Atraumatic and Moist Mucous Membranes
Respiratory: Clear to Auscultation
Cardiac: Regular Rhythm and S1/S2; Negative Murmur, Rub or Gallop
GI: Soft, Nontender, Nondistended and Normal Bowel Sounds; Negative Organomegaly
Rectal: Deferred by Provider
Musculoskeletal: No Clubbing, No Cyanosis and No Edema
Skin: Negative Rash
Neuro: Nonfocal/Grossly Intact
[2024-02-11 10:02] VITALS: BP 130/76
--- NOTE | 2024-02-11 10:07 | CM ---
Addendum entered by Pamela Mendoza RN 02/11/24 10:15:
SAMRA spoke with Michelle at [facility]. She is updated physician with updated clinical. CM is awaiting acceptance feedback.
Original Note:
CM was consulted for inpatient psychiatric placement. CM reviewed medical records. Of note, patient was in Crisis Department and had been accepted to [facility]. Patient's transfer was abandoned as patient was not medically cleared. CM spoke with
[facility] and was advised to send new referral to [phone] ([facility]).
CM is awaiting clinical review by [facility].
--- NOTE | 2024-02-11 10:24 | CS.PSYCHR ---
Consult Summary - Psychiatry
-
Pt is an 64 yo female with long hx of Schizoaffective d/o, presented to ED via EMS, who were reportedly called to pt's custodial for threatening behavior. Today, pt endorses general thoughts of hurting others, denies a specific person, did not
want to answer further questions. Pt states she is 'homeless' although she resides at [facility] for many years, states she has SI (did not elaborate), states she is in 'end of life care' and 'can't take anymore.' No EPS evident.
Psych Hx: Schizoaffective d/o with many previous inpatient stays, last known at [facility] May 2023; [facility] [place] [facility]
Outpatient treatment/med mgt at [facility], last seen Oct 2023, noted easily agitated at baseline
Psych Meds: Zyprexa 20 mg HS, Prozac 40 mg QD, Haldol 10 mg BID, Ativan 0.5 mg QD
SH: x 2; noted 2 yrs college educ, residing at [facility] x approx 14 years
MSE: lying on side in bed, alert with sensorium intact. Limited cooperation, affect dysphoric, states generalized thoughts of hurting others, vague SI, mood depressed and irritable. Reality testing appears to be limited. Insight and judgement
limited. Pt appears agreeable to inpatient psych tx.
Imp: Schizoaffective d/o, exacerbation of depression and psychosis
Rec: Inpatient psychiatric placement when medically cleared
Will continue existing medications for now. Will follow
--- NOTE | 2024-02-11 10:31 | PTCARENOTE ---
pt aaox3. states no pain or sob. room air 98%. is having large amt nasal mucous. pt ambulatory in room by herself.
--- NOTE | 2024-02-11 10:38 | CM ---
Addendum entered by Pamela Mendoza RN 02/11/24 11:22:
CM faxed pulse ox evaluation to [facility] for clinical review.
Original Note:
Physician at [facility] is requesting an ambulatory pulse ox assessment. CM updated bedside RN and hospitalist.
[2024-02-11 11:13] VITALS: O2SAT 96
[2024-02-11] MEDS: DUONEB INH ×2 (11:15→15:38)
--- NOTE | 2024-02-11 11:15 | RESPNOTE ---
Patient required no o2 to maintain spo2 > 92% while ambulating. Patient ambulated 100ft
--- NOTE | 2024-02-11 11:41 | CM ---
Patient has been accepted to [facility]. CM updated bedside RN and hospitalist. Plan for 14:45 transport.
PLAN: [facility].
--- NOTE | 2024-02-11 11:43 | W.DCSUMMARY ---
Discharge Summary
Discharge Data
Date of Admission: 02/11/24
Date of Discharge: 02/11/24
-
Pending Results: No
Hospital Course
Impression:*
Transient hypoxia, improved.
Schizoaffective disorder.
Plan:
Transient hypoxia
Unclear reasons, possibly in the settings of agitation and atelectasis.
No clinical evidence of respiratory distress or increased work of breathing.
Pulse ox 96-98% on room air shortly after patient ambulating to the restroom
Lung exam with no evidence of bronchospasm
Afebrile
Chest x-ray with no acute changes other than mild hyperinflation.
COVID/influenza negative
Unremarkable blood work other than mild likely hypovolemic hyponatremia with contraction alkalosis (less likely chronic and function of chronic compensation)
Clinically no evidence of COPD exacerbation or CHF.
Schizoaffective disorder.
Currently calm and cooperative.
Continue preadmission regimen including Zyprexa, Ativan, Haldol, Prozac,
Psych consultation
Medically optimized for discharge to inpatient psych if required.
Discharge Plan
-
Patient Disposition: Psych Facility
Discharge Diagnosis/Procedures: Schizoaffective disorder.
Condition: Good
Diet: Regular
Referrals:
UNKNOWN - PT DOES,NOT KNOW [Family Provider] -
Prescriptions:
New
benztropine 0.5 mg Tablet
0.5 mg PO BIDPRN PRN (Reason: dystonia/EPS) Qty: 20 0RF
Continued
fluoxetine [Prozac] 40 mg Capsule
40 mg PO DAILY
haloperidol 10 mg Tablet
10 mg PO BID
docusate sodium [Colace] 100 mg Capsule
100 mg PO DAILY
Ensure Original Liquid
1 ea PO BID
lorazepam 0.5 mg Tablet
0.5 mg PO DAILY
magnesium hydroxide [Milk of Magnesia] 400 mg/5 mL Suspension
15 ml PO DAILY
biotin 10,000 mcg Capsule
10,000 mcg PO DAILY
olanzapine 20 mg Tablet
20 mg PO HS
Discharge Orders:
Discharge Patient (As Directed); Ordered 02/11/24
Ordered By: Nixon Rojo
Discharge Date and Time
Print Language: GUAMANIAN
--- NOTE | 2024-02-11 11:47 | CM ---
Addendum entered by Pamela Mendoza RN 02/11/24 15:37:
CM confirmed that patient will sign 201 on arrival to facility.
Addendum entered by Pamela Mendoza RN 02/11/24 11:49:
CM attempted to update daughter with plan for transfer. CM unable to leave a message.
Original Note:
CM spoke with Minal at [facility] to update with transfer to [facility]. [facility] [phone]
[2024-02-11 15:30] VITALS: BP 126/67
== END 2024-02-11 15:42 ==
LOC: ED 02:48
PROVIDERS: Emergency Medicine; ADMITTING PHYSICIAN Internal Medicine; ATTENDING PHYSICIAN Internal Medicine; EMERGENCY PHYSICIAN Emergency Medicine; OTHER PHYSICIAN Psychiatry & Neurology Psychiatry
DX: F25.9 Schizoaffective disorder, unspecified (principal); R09.02 Hypoxemia; F44.9 Dissociative and conversion disorder, unspecified; I10 Essential (primary) hypertension; R06.02 Shortness of breath; G93.89 Other specified disorders of brain; F32.A Depression, unspecified; J44.9 Chronic obstructive pulmonary disease, unspecified; J98.11 Atelectasis; Z11.52 Encounter for screening for COVID-19; Z88.6 Allergy status to analgesic agent; Z88.0 Allergy status to penicillin; Z90.49 Acquired absence of other specified parts of digestive tract; Z87.891 Personal history of nicotine dependence; Z77.22 Contact with and (suspected) exposure to environmental tobacco smoke (acute) (chronic)
CPT/HCPCS: 71046; 80053; 80306; 80307; 81003; 84484; 85025; 87502; 87811; 93005; 94640; 94761; 99285; G0378

== ENCOUNTER 2024-07-05 13:06 | Emergency (ER) | payer MEDICARE, OTHER, SELFPAY ==
[2024-07-05 13:07] VITALS: BP 143/97
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
[2024-07-05 14:43] LABS: Carboxyhemoglobin 2.9 %
[2024-07-05 14:44] LABS: % Basophils 0.9 % (0-2); % Eosinophils 5.2 % (0-6); % Immature Granulocytes 0.1 % (0-0.5); % Neutrophils 66.8 % (42.2-75.2); Absolute Basophils 0.1 10^3/uL (0-0.2); Absolute Eosinophils 0.4 10^3/uL (0-0.7); Absolute Lymphocytes 1.6 10^3/uL (1.2-3.4); Absolute Monocytes 0.6 10^3/uL (0.1-0.6); Absolute Neutrophils 5.4 10^3/uL (1.4-6.5); Hematocrit 33.6 % (37.0-47.0); Hemoglobin 11.1 g/dL (12.0-16.0); Mean Corpuscular Hgb 30.6 pg (27.0-31.0); Mean Corpuscular Volume 92.6 fL (81.0-99.0); Mean Platelet Volume 8.6 fL (7.4-10.4); Nucleated Red Blood Cells % 0 %; Platelet Count 285 10^3/uL (130-400); Red Blood Cell Count 3.63 10^6/uL (4.20-5.40); White Blood Cell Count 8.1 10^3/uL (4.8-10.8)
[2024-07-05 14:58] LABS: ALT (SGPT) 12 U/L (0-35); AST (SGOT) 19 U/L (14-36); Acetaminophen < 10 ug/ml (10-30); Albumin 3.3 g/dl (3.5-5.0); Alkaline Phosphatase 69 U/L (38-126); Blood Urea Nitrogen 7 mg/dl (7-17); Calcium 8.8 mg/dl (8.4-10.2); Carbon Dioxide 37 mmol/L (22-30); Chloride 93 mmol/L (98-107); Glucose 89 mg/dl (70-99); Potassium 4.1 mmol/L (3.5-5.1); Salicylate < 1.0 mg/dl (2.0-20.0); Sodium 131 mmol/L (135-145); Total Bilirubin 0.5 mg/dl (0.2-1.3); Total Protein 5.9 g/dl (6.3-8.2); eGFR > 60.00
[2024-07-05 15:02] LABS: Alcohol None Detected
[2024-07-05 16:14] LABS: Amphetamines Negative (Negative); Barbiturates Negative (Negative); Benzodiazepines Negative (Negative); Buprenorphine Negative (Negative); Cocaine Negative (Negative); Marijuana Negative (Negative); Methadone Negative (Negative); Methamphetamines Negative (Negative); Opiates Negative (Negative); Phencyclidine Negative (Negative); Tricyclic Antidepressants Negative (Negative)
--- NOTE | 2024-07-05 16:46 | EDRN ---
the pt is cleared for discharge back to [facility] per ER Dr Lei and ER hospital tray service worker.
this SPANISH LECTURER called [facility] [phone] and spoke with staff Kim via telephone and notified her of this pts discharge disposition.
Per Kim, she will confirm with her electrical & instrumentation supervisor and thinks she should be able to come pick this pt up from ER and transport her back to [facility] using a staff vehicle.
Per Kim, [facility] is located approx 15 minutes away at [address] [place] [address]
[2024-07-05 16:57] VITALS: BP 146/86
== END 2024-07-05 17:19 | disposition home or self-care (01) ==
LOC: EMR 13:06
PROVIDERS: EMERGENCY PHYSICIAN Emergency Medicine; PRIMARYCARE PHYSICIAN Family Medicine
DX: F25.9 Schizoaffective disorder, unspecified (principal); R45.851 Suicidal ideations; X08.8XXA Exposure to other specified smoke, fire and flames, initial encounter; J44.9 Chronic obstructive pulmonary disease, unspecified; F29 Unspecified psychosis not due to a substance or known physiological condition; R44.3 Hallucinations, unspecified; I10 Essential (primary) hypertension; E11.9 Type 2 diabetes mellitus without complications; F32.A Depression, unspecified; Z90.49 Acquired absence of other specified parts of digestive tract; Z87.891 Personal history of nicotine dependence; Z88.6 Allergy status to analgesic agent; Z88.0 Allergy status to penicillin
CPT/HCPCS: 99283; 80053; 80143; 80179; 80306; 82077; 82375; 85025